=== PATIENT | male | born 1990 | race Caucasian/White ===

== ENCOUNTER 2025-03-07 14:34 | Emergency (ER) | payer MEDICARE, MEDICAID ==
[~2025-03-07] VITALS: Ht 182.9 cm; Wt 72.7 kg
[2025-03-07 14:38] VITALS: BP 105/61; PULSE 97; RESP 18; TEMP 98.9; O2SAT 100
--- NOTE | 2025-03-07 18:14 | Physician Documentation ---
History of Present Illness ~ Chief Complaint: ETOH Stated Complaint: ETOH Tetanus within 5 years?: No Medication Reconciliation Allergies: Coded Allergies: No Known Allergies (Unverified , 04/03/23) Past Medical History Past Medical History: No Pertinent History Past Surgical History: no surgical history Alcohol Use: Occasionally Drug Use: methamphetamine, other Physical Exam Vital Signs: Temperature: 98.9, Source: Oral, Heart Rate: 97, Respiratory Rate: 18, BP: 105/61, Pulse Oximetry: 100, Weight: 72.730 Progress Results/Orders Results/Orders Vital Signs 03/07/25 14:38 Temp 98.9 Pulse 97 Resp 18 B/P (MAP) 105/61 Pulse Ox 100 Departure Referrals: NO PRIMARY CARE PROVIDER (PCP) Additional Comment Medical Screen Exam 34 y/o male who was BIB EMS after bystanders called due to being down behind [place]. When EMS arrived patient stated he wanted to go to the ER but has no complaints. He states he has been drinking alcohol all day. He is in triage eating top ramen. a/p: 1. Alcohol intoxication, Patient is stable, vital signs stable, non toxic. Stable to wait for room. The MSE note accurately reflects work and decisions made by me.Adry FALK 03/07/25 18:14 ADRY ANDRADE Mar 07, 2025 18:14
== END 2025-03-07 18:46 | disposition left against medical advice (07) ==
LOC: ER 14:34
DX: F10.129 Alcohol abuse with intoxication, unspecified (principal); F15.90 Other stimulant use, unspecified, uncomplicated; F19.90 Other psychoactive substance use, unspecified, uncomplicated; Z72.89 Other problems related to lifestyle; Z53.21 Procedure and treatment not carried out due to patient leaving prior to being seen by health care provider; Y90.9 Presence of alcohol in blood, level not specified